=== PATIENT | female | born 1980 | race African-American/Black ===

== ENCOUNTER 2020-08-26 10:15 | Inpatient (IN) | payer BC ==
[2020-09-09] MEDS ORDERED: Heparin 5,000 UNITS/ML VIAL ONE (09:59)
[2020-09-09] MEDS ORDERED: Bupivacaine 0.25% HCL 30 ML VIAL ONE (11:53)
[2020-09-09] MEDS ORDERED: EPINEPHrine 1 MG/ML AMP ONE (11:53)
[2020-09-09] MEDS ORDERED: Fentanyl 100 MCG/2 ML VIAL ONE ×4 (11:54→14:56)
[2020-09-09] MEDS ORDERED: Lidocaine 2% Jelly 5 ML TUBE ONE (11:54)
[2020-09-09] MEDS ORDERED: Rocuronium Bromide 10 MG/ML (10ML VIAL) ONE (12:26)
[2020-09-09] MEDS ORDERED: Ondansetron PF 4 MG/2 ML Vial ONE (12:26)
[2020-09-09] MEDS ORDERED: Lidocaine 1% PF 5 ML VIAL ONE (12:26)
[2020-09-09] MEDS ORDERED: PROPOFOL 200 MG/20 ML VIAL ONE (12:26)
[2020-09-09] MEDS ORDERED: Dexamethasone 20 MG/5 ML VIAL ONE (12:26)
[2020-09-09] MEDS ORDERED: ePHEDrine 50 MG/ML VIAL ONE (12:26)
[2020-09-09] MEDS ORDERED: Glycopyrrolate 0.2 MG/ML 5 ML SYRINGE ONE (12:26)
[2020-09-09] MEDS ORDERED: Zolpidem Tartrate 5 MG TAB PO PRN (13:49)
[2020-09-09] MEDS ORDERED: Promethazine HCl 25 MG/ML VIAL IM PRN ×3 (13:49→16:25)
[2020-09-09] MEDS ORDERED: diphenhydrAMINE 50 MG/ML VIAL IM PRN (13:49)
[2020-09-09] MEDS ORDERED: diphenhydrAMINE 50 MG/ML VIAL IVP PRN ×2 (13:49→16:25)
[2020-09-09] MEDS ORDERED: Ondansetron PF 4 MG/2 ML Vial IVP PRN ×2 (13:49→16:25)
[2020-09-09] MEDS ORDERED: Naloxone HCl 0.4 mg/ml Vial IV PRN (13:49)
[2020-09-09] MEDS ORDERED: fentaNYL Citrate/PF 2,000 MCG in Sodium Chloride 0.9% 60 ML IV PRN (13:49)
[2020-09-09] MEDS ORDERED: diphenhydrAMINE 25 MG CAP PO PRN (13:49)
[2020-09-09] MEDS ORDERED: Ondansetron HCl/PF 4 MG/2 ML Vial IVP PRN (13:52)
[2020-09-09] MEDS ORDERED: Promethazine HCl 25 MG/ML VIAL SLOW IVP PRN (13:52)
[2020-09-09] MEDS ORDERED: Midazolam HCl 2 mg/2 ml Vial ONE (13:54)
[2020-09-09] MEDS ORDERED: Communication Order-Pharmacy FS SCH (14:00)
[2020-09-09] MEDS ORDERED: PROPOFOL 20 ML ONE (14:08)
[2020-09-09] MEDS ORDERED: hydrALAZINE 20 MG/ML VIAL ONE (15:08)
[2020-09-09] MEDS ORDERED: Dextrose 50% Abboject 50 ML SYRINGE SLOW IVP PRN (16:25)
[2020-09-09] MEDS ORDERED: Hydrocodone-Acetamin 15 ML UDCUP PO PRN (16:25)
[2020-09-09] MEDS ORDERED: Dextrose 5% in Water 1,000 ML IV PRN (16:25)
[2020-09-09] MEDS ORDERED: hydrALAZINE 20 MG/ML VIAL SLOW IVP PRN (16:25)
[2020-09-09 19:31] VITALS: BMI 65.5
[2020-09-09] MEDS ORDERED: Enoxaparin Sodium 40 MG/0.4 ML SYRINGE SC SCH (21:00)
[2020-09-10] MEDS: D5 1/2 NS w/20 mEq KCL 1,000 ML IV SCH ×2 (03:20→04:45)
[2020-09-10 06:08] LABS: #Monocytes 0.6 thou/uL (0.11-0.59); %Basophils 0.1 % (0.0-1.0); %Eosinophils 0.1 % (0.0-10.0); %Lymphocytes 7.3 % (21.0-51.0); %Monocytes 4.6 % (0.0-10.0); %Neutrophils 87.9 % (42.0-75.0); Hemoglobin 12.9 g/dL (12.0-16.0); Mean Corpuscular HGB CONC 35.1 g/dL (32.0-36.0); Mean Corpuscular Hemoglobin 28.2 pg (27.0-31.0); Mean Corpuscular Volume 80.6 fL (78.0-98.0); Mean Platelet Volume 7.9 fL (7.4-10.4); Platelet Count 388 thou/uL (130-400); Red Blood Cell (RBC) Count 4.56 mill/uL (4.20-5.40); White Blood Cell (WBC) Count 13.6 thou/uL (4.8-10.8)
[2020-09-10 06:32] LABS: Anion Gap 13 mmol/L (10-20); BUN (Urea Nitrogen) 7 mg/dL (7.0-18.7); Calc. Creatinine Clearance 238 mL/min (70-130); Calcium 9.4 mg/dL (7.8-10.44); Carbon Dioxide 26 mmol/L (22-29); Chloride 103 mmol/L (98-107); Glucose 130 mg/dL (70-105); Sodium 138 mmol/L (136-145)
[2020-09-10] MEDS ORDERED: Pantoprazole 40 MG VIAL IVP SCH (09:00)
[2020-09-10 10:51] VITALS: BP 118/74; TEMP 98.8
== END 2020-09-10 11:50 | disposition home or self-care (01) | DRG 621 ==
LOC: SURG A 09-09 09:10 → EDBD 09-09 10:15 → SURG A 09-09 16:12
PROVIDERS: ADMIT Surgery; ATTEND Surgery
PROC: 0DB64Z3 Excision of Stomach, Percutaneous Endoscopic Approach, Vertical (ICD-10-PCS; principal; 2020-09-09)
PROC: 0DJ08ZZ Inspection of Upper Intestinal Tract, Via Natural or Artificial Opening Endoscopic (ICD-10-PCS; 2020-09-09)
DX: E66.01 Morbid (severe) obesity due to excess calories (principal); Z20.822 Contact with and (suspected) exposure to COVID-19; Z79.899 Other long term (current) drug therapy; Z83.3 Family history of diabetes mellitus; Z68.45 Body mass index [BMI] 70 or greater, adult
CPT/HCPCS: 36415; 80048; 85025; 88307; 88312; J0171; J0360; J0690; J1100; J1644; J1650; J2250; J2405; J2704; J3010; J3480; J3490; S0020